=== PATIENT | male | born 1985 | race Caucasian/White ===

== ENCOUNTER → 2021-12-09 | Outpatient (CLI) | payer BC ==
--- NOTE | 2021-12-09 08:12 | Diagnostic Imaging Report ---
INDICATION: Pre-MRI screening. TIME OF EXAM: 8:08 AM 2 views orbits were obtained. No definite radiopaque orbital foreign bodies are detected. The visualized paranasal sinuses appear clear. IMPRESSION: No radiopaque orbital foreign bodies are detected. Dictated by: Dictated on workstation # [id number]
--- NOTE | 2021-12-09 10:00 | Diagnostic Imaging Report ---
PROCEDURE: MRI left joint lower extremity without contrast. TECHNIQUE: Multiplanar, multisequence non contrast-enhanced MRI of the left lower extremity was accomplished. INDICATION: Jumped up and felt a pop. Knee pain for the last 3 weeks. EXAMINATION: Left knee MRI of 12/09/2021 FINDINGS: The extensor mechanism is intact. The ACL and PCL intact. The MCL is thickened perhaps due to an old injury. There is no associated edema. The lateral collateral ligamentous complex is intact. The lateral meniscus is intact. Within the posterior horn of the medial meniscus best seen on the coronal sequences specifically image #14, there is a focal area of hyperintensity which extends to the tibial surface suspicious for a small tear. The cartilage within the medial and lateral joint compartments appears maintained. There is mild fissuring of the cartilage overlying the medial patellar facet. There is a small underlying joint effusion. There is no acute osseous abnormality. IMPRESSION: 1. Suspected small tear of the posterior horn of the medial meniscus best seen on the coronal proton density sequence. Lateral meniscus intact. 2. Ligaments and tendons intact. 3. Minimal patellofemoral degenerative disease. Dictated by: Dictated on workstation # [id number]
== END ==
LOC: RAD 08:00
PROVIDERS: ATTEND Nurse Practitioner Family
DX: Z01.818 Encounter for other preprocedural examination (principal); M25.562 Pain in left knee
CPT/HCPCS: 73721